=== PATIENT | male | born 1950 | race Caucasian/White ===

== ENCOUNTER → 2016-11-21 | Outpatient (CLI) | payer MEDICAID ==
[~2016-11-21] MED LIST: DALIRESP500 MCG PO; FLONASE16 GM NASBOTH; PERCOCET 325-51 TAB PO; PREDNISONE10 MG PO; PROVENTIL HFA6.7 GM INH; PROVENTIL2.5 MG/3 M INH; SINGULAIR10 MG PO; SPIRIVA18 MCG INH; SYMBICORT 160-4.6 GM INH; ZYRTEC10 MG PO
== END | disposition short-term general hospital (02) ==
LOC: CLPULM 13:26
DX: J44.9 Chronic obstructive pulmonary disease, unspecified (principal); G47.33 Obstructive sleep apnea (adult) (pediatric); R91.8 Other nonspecific abnormal finding of lung field